=== PATIENT | male | born 1990 | race Caucasian/White ===

== ENCOUNTER 2016-07-01 08:03 | Emergency (ER) | payer BC, OTHER ==
[~2016-07-01] VITALS: Ht 182.9 cm; Wt 83.9 kg
[~2016-07-01 08:03] MED LIST: IBUPROFEN800 M1 PO; NKM; NORCO 5-325 TA1 EACH ORAL; ONDANSETRON ODT4 MG ORAL
[2016-07-01] MEDS ORDERED: IBUPROFEN600 MG ORAL (08:56)
--- NOTE | 2016-07-01 08:56 | Emergency Room Report ---
History of Present Illness General Chief Complaint: Lower Extremity Injury Source: Patient Present Illness HPI Patient presents with complaint of toe pain on the right, great toe states he jammed it while playing basketball 4 days later, complains of pain, persistent, as well as swelling on the toe without bruising or deformity. Limited range of motion secondary to pain. Allergies: Coded Allergies: No Known Allergies (Unverified , 06/06/14) Patient History Past Medical History: see triage record Past Surgical History: none Pertinent Family History: none Social History: Denies: alcohol use, smoking Reviewed Nursing Documentation: PMH: Agreed Nursing Documentation-PMH Past Medical History: No Stated History Review of Systems Musculoskeletal: Reports: joint pain, joint swelling, see HPI All Other Systems: negative except mentioned in HPI Physical Exam Vital Signs Date Time Temp Pulse Resp B/P Pulse Ox O2 Delivery O2 Flow Rate FiO2 07/01/16 08:08 98.4 86 16 115/63 99 Room Air Sp02 EP Interpretation: reviewed, normal General Appearance: normal inspection, well appearing, no apparent distress, alert Head: atraumatic Eyes: bilateral eye normal inspection ENT: normal ENT inspection, hearing grossly normal, normal voice Neck: normal inspection, full range of motion, supple, no bony tend Respiratory: normal inspection, lungs clear, normal breath sounds, no respiratory distress, no retraction, no wheezing Cardiovascular #1: regular rate, rhythm, no edema Gastrointestinal: normal inspection, normal bowel sounds, non tender, soft, no guarding, no hernia Genitourinary: no CVA tenderness Musculoskeletal: back normal, normal range of motion, tender - right great toe , mmild swelling, passive range of motion intact Neurologic: normal inspection, alert, responsive, speech normal Psychiatric: normal inspection, judgement/insight normal, mood/affect normal Skin: normal inspection, normal color, no rash Medical Decision Making Diagnostic Impression: Primary Impression: Injury of lower extremity ER Course Patient here with likely a sprain of his right great toe, no obvious fracture on x-ray, minus sesamoid. Conservative, ibuprofen for patient. Other X-Ray Diagnostic Results Other X-Ray Diagnostic Results : X-Ray Ordered: foot, right Date: Jul 01, 2016 Time: 08:55 EP Interpretation: Yes Findings: no dislocation, other - mild soft tissue swelling Number of Views: 3 Last Vital Signs Date Time Temp Pulse Resp B/P Pulse Ox O2 Delivery O2 Flow Rate FiO2 07/01/16 08:08 98.4 86 16 115/63 99 Room Air Status: unchanged Disposition: HOME, SELF-CARE Condition: Stable Referrals: NON PHYSICIAN (PCP) Tomas King MD Jul 01, 2016 08:56
[2016-07-01 09:00] VITALS: BP 115/63
[2016-07-01 09:08] VITALS: BP 115/63
--- NOTE | 2016-07-01 11:42 | Diagnostic Imaging Report ---
Indications: Right foot injury, pain Technique: 3 views right foot. Findings: Comparison: None No acute fracture, dislocation, joint space widening , surrounding soft tissue swelling/foreign body/other abnormality, or other acute changes are identified. Small well-corticated osseous density resides adjacent to the lateral margin of the base of the first distal phalanx. IMPRESSION: No evidence of acute injury. Old unfused fracture fragment versus accessory ossification center first distal phalangeal base.
== END 2016-07-01 09:08 | disposition home or self-care (01) ==
LOC: EMR 08:31
DX: S99.821A Other specified injuries of right foot, initial encounter (principal); W23.0XXA Caught, crushed, jammed, or pinched between moving objects, initial encounter; Y93.67 Activity, basketball; Y92.89 Other specified places as the place of occurrence of the external cause
CPT/HCPCS: 99283